=== PATIENT | male | born 2000 | race Caucasian/White ===

== ENCOUNTER 2021-02-10 21:52 | Emergency (ER) | payer OTHER ==
[~2021-02-10] VITALS: Ht 170.2 cm; Wt 79.5 kg
[2021-02-10 22:43] LABS: HEMATOCRIT 44.6 % (42.0-52.0); HEMOGLOBIN 15.4 g/dl (13.5-17.5); MEAN CORPUSCULAR HEMOGLOBIN 30.4 pg (27.0-33.0); MEAN CORPUSCULAR HGB CONC 34.5 g/dl (32.0-36.5); PLATELET COUNT, AUTOMATED 334 10^3/uL (150-450); RED BLOOD COUNT 5.07 10^6/uL (4.30-6.10); WHITE BLOOD COUNT 6.5 10^3/uL (4.0-10.0)
[2021-02-10 23:04] LABS: AMPHETAMINES LEVEL URINE NEGATIVE (NEGATIVE); BARBITURATES URINE NEGATIVE (NEGATIVE); BENZODIAZEPINES URINE NEGATIVE (NEGATIVE); CANNABINOIDS URINE NEGATIVE (NEGATIVE); COCAINE METABOLITE URINE NEGATIVE (NEGATIVE); METHADONE URINE NEGATIVE (NEGATIVE); OPIATES URINE NEGATIVE (NEGATIVE); PHENCYCLIDINE URINE NEGATIVE (NEGATIVE)
[2021-02-10 23:15] LABS: ACETAMINOPHEN LEVEL < 2.0 UG/ML (10.0-30.0); ALBUMIN 4.3 GM/DL (3.2-5.2); ALT/SGPT 27 U/L (12-78); BILIRUBIN,DIRECT 0.1 MG/DL (0.0-0.2); BILIRUBIN,TOTAL 0.3 MG/DL (0.2-1.0); BLOOD UREA NITROGEN 8 MG/DL (7-18); CARBON DIOXIDE LEVEL 28 MEQ/L (21-32); CHLORIDE LEVEL 105 MEQ/L (98-107); CREATININE FOR GFR 0.97 MG/DL (0.70-1.30); ETHYL ALCOHOL (ETHANOL) 0.086 % (0.000-0.010); GLUCOSE, FASTING 100 MG/DL (70-100); POTASSIUM SERUM 3.5 MEQ/L (3.5-5.1); SALICYLATE LEVEL < 1.7 MG/DL (5.0-30.0); SODIUM LEVEL 140 MEQ/L (136-145); TOTAL PROTEIN 7.9 GM/DL (6.4-8.2)
[2021-02-11 01:55] LABS: RSV AMPLIFICATION NEGATIVE (NEGATIVE)
[2021-02-11 06:48] VITALS: BP 133/81
--- NOTE | 2021-02-12 20:14 | ECGEPIP ---
[facility] - ED Test Date: 2021-02-10 Pat Name: LAURIE CAUSEY Department: Room: - Gender: Male Blemish Remover: LEONEL : 2000 Requested By: BROOKLYN Del Cid Order Number: [id number] Reading MD: Amanda Washington Measurements Intervals [place] Rate: 73 P: 44 W[place]: 140 QRS: 45 QRSD: 98 T: 40 QT: 388 QTc: 427 Interpretive Statements Normal sinus rhythm with sinus arrhythmia no prior Electronically Signed on 02-12-2021 20:14:06 EDT by Amanda Washington
== END 2021-02-11 06:53 ==
LOC: M ED 21:52
DX: R45.851 Suicidal ideations (principal); F17.290 Nicotine dependence, other tobacco product, uncomplicated